=== PATIENT | male | born 1985 | race Caucasian/White ===

== ENCOUNTER 2017-02-05 14:54 | Inpatient (IN) | payer SELFPAY ==
--- NOTE | 2017-02-05 15:08 | PDOC ---
History of Present Illness - General Chief Complaint: Alcohol intoxication Stated Complaint: ALCOHOL INTOXICATION Time Seen by Provider: 02/05/17 15:01 History Source: Parent(s) Exam Limitations: Clinical Condition - History of Present Illness Initial Comments: 31 yo M history alcohol abuse presents with intoxication after 4 days of binge drinking. As per parents at bedside, he has history of heavy drinking in the past, but has never done any formal rehab/detox. He has not been eating for these past few days either. He had been telling his parents that he was feeling ill and was sleeping, however, it became apparent that he was drinking when they saw multiple wine and liquor bottles. Patient with very few verbal responses at present, does not offer history. Past History - Past Medical History Allergies/Adverse Reactions: Allergies Allergy/AdvReac Type Severity Reaction Status Date / Time No Known Allergies Allergy Unverified 02/05/17 14:57 Home Medications: Ambulatory Orders NK [No Known Home Medication] 02/05/17 Review of Systems - Review of Systems Able to Perform ROS?: No (intoxication) *Physical Exam - Physical Exam Comments: GENERAL: Awake, alert, answering some questions. Appears ill. HEAD: No signs of trauma EYES: PERRLA, EOMI, sclera anicteric, conjunctiva clear ENT: Auricles normal inspection, hearing grossly normal, nares patent, oropharynx clear without exudates. Dry mucosa. No tongue fasciculations. NECK: Normal ROM, supple, no lymphadenopathy, JVD, or masses LUNGS: Breath sounds equal, clear to auscultation bilaterally. No wheezes, and no crackles HEART: Tachycardic, normal S1 and S2, no murmurs, rubs or gallops ABDOMEN: Soft, nontender, normoactive bowel sounds. No guarding, no rebound. No masses EXTREMITIES: Normal range of motion, no edema. No clubbing or cyanosis. No cords, erythema, or tenderness. No hand tremors. NEUROLOGICAL: Cranial nerves II through XII grossly intact. Motor and sensation intact. SKIN: Warm, Dry, normal turgor, no rashes or lesions noted. Heart Score/ECG Review - ECG Impressions Comment:: EKG read 16:01- Sinus tach 111 bpm, no acute ST/T changes ED Treatment Course - LABORATORY CBC & Chemistry Diagram: 02/06/17 18:15 02/06/17 18:15 Medical Decision Making - Critical Care Time Total Critical Care Time (minutes): 45 Critical Care Statement: The care of this patient involved high complexity decision making to prevent further life threatening deterioration of the patient 's condition and/or to evaluate & treat vital organ system(s) failure or risk of failure. - Medical Decision Making 02/05/17 17:38 Lactate extremely elevated at 8, alcohol level >300. Will continue aggressive IV fluid resuscitation to clear lactate. I have added on serum acetone level. 02/05/17 18:06 Case d/w Dr. Keating, accepted to ICU for AKA. D/w Dr. Menchaca, hospitalist. Accepted for admission. Utox is still pending. 02/05/17 18:12 Results d/w patient and parents at bedside. Awaiting ICU bed so that patient may be transferred to [facility]. Will continue IV hydration. Will give zofran for nausea/vomiting. Patient is awake and alert, answering questions, still ill-appearing. 02/05/17 18:56 Utox is negative. *DC/Admit/Observation/Transfer Diagnosis at time of Disposition: Alcoholic ketoacidosis - Discharge Dispostion Condition at time of disposition: Critical Admit: Yes - Referrals - Patient Instructions - Post Discharge Activity
[2017-02-05] MEDS ORDERED: FOLIC ACID INJECTION - 1 MG, THIAMINE HCL 100 MG, MULTIVIT INJECTION ADULT 10 ML in SOD... IVPB ONE ×2 (15:09→23:45)
[2017-02-05] MEDS ORDERED: SODIUM CHLORIDE 1,000 ML IV STA (15:09)
[2017-02-05] MEDS ORDERED: FAMOTIDINE 20 MG/50 ML IVPB 20 MG/50 ML MG IVPB ONE ×2 (15:10→16:20)
[2017-02-05 16:01] LABS: BASO % 0.5 % (0-2.0); HEMATOCRIT 46.9 % (35.4-49); HEMOGLOBIN 15.7 GM/dl (11.7-16.9); LYMPH % 7.1 % (8-40); MCH 31.7 pg (25.7-33.7); MCHC 33.5 g/dl (32.0-35.9); MEAN CELL VOLUME 94.8 fl (80-96); MEAN PLT VOLUME 8.7 fl (7.5-11.1); NEUT % 88.4 % (42.8-82.8); PLATELET COUNT 212 K/MM3 (134-434); RBC 4.95 M/mm3 (4.00-5.60); RDW 12.8 % (11.9-15.9); WHITE BLOOD COUNT 15.5 K/mm3 (4.0-10.8)
[2017-02-05] MEDS ORDERED: MULTIVIT INJ. ADULT COMBO WITH VIT K 1 COMBO 10 ML VIAL IV ONE (16:18)
[2017-02-05] MEDS ORDERED: THIAMINE HCL 200 MG/2 ML VIAL ONE (16:18)
[2017-02-05] MEDS ORDERED: FOLIC ACID 5 MG/1 ML ONE (16:20)
[2017-02-05 16:35] LABS: INR 0.99 (0.82-1.09); PROTHROMBIN TIME (PATIENT) 11.1 SEC (10.2-13.0)
[2017-02-05 17:01] LABS: ACETAMINOPHEN < 2.000 ug/ml (10.0-30.0); SALICYLATE < 4.0 mg/dl (0.0-30.0); TROPONIN I (DFP) < 0.03 ng/ml (0.03-0.50)
[2017-02-05 17:04] LABS: ALCOHOL 418.1 mg/dl (5.3-49)
[2017-02-05 17:06] LABS: BLOOD UREA NITROGEN 11 mg/dl (7-18); CREATININE 0.8 mg/dl (0.6-1.3); GLUCOSE,RANDOM 174 mg/dl (74-106)
[2017-02-05 17:07] LABS: ALBUMIN 4.1 g/dl (3.5-5.0); CALCIUM 8.6 mg/dl (8.4-10.2); LIPASE 39 U/L (22-51); MAGNESIUM 2.1 mg/dL (1.8-2.4); PHOSPHOROUS 3.2 mg/dl (2.5-4.6); SGOT/AST 45 U/L (10-42); TOT PROT 7.7 g/dl (6.4-8.3)
[2017-02-05] MEDS ORDERED: SODIUM CHLORIDE 3,000 ML IV STA (17:07)
[2017-02-05 17:08] LABS: ALK PHOS 43 U/L (32-92); SGPT/ALT 38 U/L (10-40)
[2017-02-05 17:13] LABS: ANION GAP 24 (8-16); CHLORIDE 92 mmol/L (98-107); CO2 17 mmol/L (22-28); POTASSIUM 3.6 mmol/L (3.5-5.1); SODIUM 133 mmol/L (136-145)
[2017-02-05 17:30] LABS: PH,URINE 5.5 (4.5-8); URINE APPEARANCE Clear; URINE BILIRUBIN Negative (NEGATIVE); URINE GLUCOSE (UA) Negative (NEGATIVE); URINE KETONE 3+ (NEGATIVE); URINE NITRITE Negative (NEGATIVE); URINE UROBILINOGEN 0.2 (0.2-1.0)
[2017-02-05 17:33] LABS: URINE BLOOD 1+ (NEGATIVE); URINE COLOR YELLOW; URINE PROTEIN 2+ (NEGATIVE)
[2017-02-05 18:09] LABS: AMORP URATES FEW /hpf (NONE SEEN); EPI CELLS 0-3 /HPF
[2017-02-05 18:10] LABS: URINE CASTS FINELY GRANULAR 1-3 /hpf
[2017-02-05 18:11] LABS: URINE MUCUS 1+
[2017-02-05] MEDS ORDERED: ONDANSETRON 4 MG/2 ML VIAL IVPUSH ONE (18:12)
[2017-02-05] MEDS ORDERED: ONDANSETRON 4 MG/2 ML VIAL ONE (18:14)
[2017-02-05 18:30] LABS: COCAINE, UR NEGATIVE ng/ml (CUTOFF=300); OPIATES, URI NEGATIVE ng/ml (CUTOFF=300); PHENCYCLIDINE,URINE NEGATIVE ng/ml (CUTOFF=25); URINE AMPHETAMINES NEGATIVE ng/ml (CUTOFF=500); URINE BARBITURATES NEGATIVE ng/ml (CUTOFF=200); URINE BENZODIAZEPINES NEGATIVE ng/ml (CUTOFF=200)
[2017-02-05 18:34] LABS: METHADONE, UR NEGATIVE ng/ml (CUTOFF=300)
[2017-02-05] MEDS ORDERED: METOCLOPRAMIDE HCL INJECTION 10 MG/2 ML VIAL IVPUSH ONE (19:32)
--- NOTE | 2017-02-05 19:33 | HP ---
CHIEF COMPLAINT: Alcohol intoxication PCP: none Source: Patient, family (mother) HISTORY OF PRESENT ILLNESS: 31 yo man w/ pmh of alcohol abuse, ?LATOSHA/hypochondriasis who presents with AMS this AM after 4 days of surreptitious increased alcohol consumption and decreased PO intake for last 4 days. Per family, pt has been socially withdrawn in room for past 3-4 days, stating he was sick following a recent dental abscess. This AM, pt was notably altered, somnolent and appeared "acidotic" to mother, who is an [employer] and decided to bring him into ED at . Upon examining pt' s room, multiple bottles of wine and liquor were found by parents, as pt had evidently been binge drinking for the last few days in his room. Pt also with decreased PO intake and significant N/V this AM. Endorses consuming ~5 drinks this morning and feeling intoxicated. He denies any fever/chills, AGARWAL/dizziness, cough, CP, SOB, Abdominal pain, diarrhea/constipation, dysuria, hematemesis, rashes, joint pain, peripheral numbness/weakness. He does endorse L tooth abscess. Per family, pt had a similar binging episode ?6 weeks ago and attempted to remain sober since then, however apparently lost much motivation in his tx. Pt states he started drinking since age 20 and often drinks to help mitigate his severe anxiety, including stress at work, in his relationships and his health. He has never undergone a detox program before. Pt has seen a psychiatrist for phobias/LATOSHA, however is poorly compliant due to issues with taking oral medication. ER course was notable for: (1)Utox alcohol 418 (2)Lactic acid 8.2 (3)WBC 15.5 (4)4L NS at Recent Travel: None PAST MEDICAL HISTORY: ?LATOSHA/hypochondriasis Alcohol abuse PAST SURGICAL HISTORY: None Social History: Smoking: Denies Alcohol: Since age 20. 5-6 drinks per day on average currently, every day. Hard alcohol/wine/beer. 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 Mother who is W[employer]. Engaged to [employer]. States he has severe anxiety and drinks alcohol to cope with it. States that he feels very stressed at work. Family History: Father with hx/ of alcohol abuse Allergies No Known Allergies Allergy (Unverified 02/05/17 14:57) HOME MEDICATIONS: Home Medications Medication Instructions Recorded NK [No Known Home Medication] 02/05/17 REVIEW OF SYSTEMS CONSTITUTIONAL: loss of appetite, Absent: fever, chills, diaphoresis, generalized weakness, malaise, weight change HEENT: Absent: rhinorrhea, nasal congestion, throat pain, throat swelling, difficulty swallowing, mouth swelling, ear pain, eye pain, visual changes CARDIOVASCULAR: Absent: chest pain, syncope, palpitations, irregular heart rate, lightheadedness , peripheral edema RESPIRATORY: Absent: cough, shortness of breath, dyspnea with exertion, orthopnea, wheezing, stridor, hemoptysis GASTROINTESTINAL: nausea, vomiting, Absent: abdominal pain, abdominal distension, diarrhea, constipation, melena, hematochezia GENITOURINARY: Absent: dysuria, frequency, urgency, hesitancy, hematuria, flank pain, genital pain MUSCULOSKELETAL: Absent: myalgia, arthralgia, joint swelling, back pain, neck pain SKIN: Absent: rash, itching, pallor HEMATOLOGIC/IMMUNOLOGIC: Absent: easy bleeding, easy bruising, lymphadenopathy, frequent infections ENDOCRINE: Absent: unexplained weight gain, unexplained weight loss, heat intolerance, cold intolerance NEUROLOGIC: mental status changes, Absent: headache, focal weakness or paresthesias, dizziness, unsteady gait, seizure, bladder or bowel incontinence PSYCHIATRIC: anxiety, Absent: depression, suicidal or homicidal ideation, hallucinations. PHYSICAL EXAMINATION Vital Signs - 24 hr 02/05/17 02/05/17 02/05/17 14:56 16:54 18:09 Temperature 98.3 F Pulse Rate 124 H Pulse Rate [ 110 H 116 H Right Radial] Respiratory 20 20 20 Rate Blood Pressure 138/82 Blood Pressure 162/90 [Right Arm] O2 Sat by Pulse 95 96 96 Oximetry (%) GENERAL: Awake, alert, and fully oriented. Very anxious HEAD: Normal with no signs of trauma. EYES: Pupils equal, round and reactive to light, extraocular movements intact, sclera anicteric, conjunctiva clear. No lid lag. EARS, NOSE, THROAT: Ears normal, nares patent. Moist mucous membranes. Trace perimolar purulence around L upper posterior molar, with no significant drainage or erythema NECK: Normal range of motion, supple without lymphadenopathy, JVD, or masses. LUNGS: Breath sounds equal, clear to auscultation bilaterally. No wheezes, and no crackles. No accessory muscle use. HEART: Tachycardic, normal S1 and S2 without murmur, rub or gallop. ABDOMEN: Soft, nontender, not distended, normoactive bowel sounds, no guarding, no rebound, no masses. No hepatomegaly or splenomegaly. MUSCULOSKELETAL: Normal range of motion at all joints. No bony deformities or tenderness. No CVA tenderness. UPPER EXTREMITIES: 2+ pulses, warm, well-perfused. No cyanosis. No clubbing. No peripheral edema. LOWER EXTREMITIES: 2+ pulses, warm, well-perfused. No calf tenderness. No peripheral edema. NEUROLOGICAL: Cranial nerves II-XII intact. Normal speech. Gait not evaluated. PSYCHIATRIC: Cooperative. Good eye contact. Anxious and mildly agitated. SKIN: Warm, dry, normal turgor, no rashes or lesions noted, normal capillary refill. Laboratory Results - last 24 hr CBC, [facility] 02/05/17 15:45 02/05/17 15:45 02/05/17 02/05/17 02/05/17 15:45 15:45 15:45 WBC 15.5 H RBC 4.95 Hgb 15.7 Hct 46.9 MCV 94.8 MCH 31.7 MCHC 33.5 RDW 12.8 Plt Count 212 MPV 8.7 Neutrophils % 88.4 H Lymphocytes % 7.1 L Monocytes % 4.0 Eosinophils % 0.0 Basophils % 0.5 PT with INR 11.1 INR 0.99 Sodium 133 L Potassium 3.6 Chloride 92 L Carbon Dioxide 17 L Anion Gap 24 H BUN 11 Creatinine 0.8 Creat Clearance w eGFR > 60 Random Glucose 174 H Lactic Acid Calcium 8.6 Phosphorus 3.2 Magnesium 2.1 Total Bilirubin 1.0 AST 45 H ALT 38 Alkaline Phosphatase 43 Creatine Kinase Creatine Kinase Index CK-MB (CK-2) Troponin I Total Protein 7.7 Albumin 4.1 Lipase 39 Urine Color Urine Appearance Urine pH Ur Specific [place] Urine Protein Urine Glucose (UA) Urine Ketones Urine Blood Urine Nitrite Urine Bilirubin Urine Urobilinogen Ur Leukocyte Esterase Urine RBC Urine WBC Ur Epithelial Cells Amorphous Urates Urine Casts Hyaline Casts Urine Mucus Salicylates Opiates Screen Methadone Screen Acetaminophen Barbiturate Screen Phencyclidine Screen Ur Amphetamines Screen MDMA (Ecstasy) Screen Benzodiazepines Screen Cocaine Screen U Marijuana (THC) Screen Alcohol, Quantitative Acetone, Qual 12/02/05/17 02/05/17 15:45 15:45 15:45 WBC RBC Hgb Hct MCV MCH MCHC RDW Plt Count MPV Neutrophils % Lymphocytes % Monocytes % Eosinophils % Basophils % PT with INR INR Sodium Potassium Chloride Carbon Dioxide Anion Gap BUN Creatinine Creat Clearance w eGFR Random Glucose Lactic Acid 8.2 H* Calcium Phosphorus Magnesium Total Bilirubin AST ALT Alkaline Phosphatase Creatine Kinase 320 H Creatine Kinase Index 1.7 CK-MB (CK-2) 5.7 H Troponin I < 0.03 L Total Protein Albumin Lipase Urine Color Urine Appearance Urine pH Ur Specific [place] Urine Protein Urine Glucose (UA) Urine Ketones Urine Blood Urine Nitrite Urine Bilirubin Urine Urobilinogen Ur Leukocyte Esterase Urine RBC Urine WBC Ur Epithelial Cells Amorphous Urates Urine Casts Hyaline Casts Urine Mucus Salicylates < 4.0 Opiates Screen Methadone Screen Acetaminophen < 2.000 L Barbiturate Screen Phencyclidine Screen Ur Amphetamines Screen MDMA (Ecstasy) Screen Benzodiazepines Screen Cocaine Screen U Marijuana (THC) Screen Alcohol, Quantitative 418.1 H* Acetone, Qual 02/05/17 02/05/17 02/05/17 17:20 17:20 17:20 WBC RBC Hgb Hct MCV MCH MCHC RDW Plt Count MPV Neutrophils % Lymphocytes % Monocytes % Eosinophils % Basophils % PT with INR INR Sodium Potassium Chloride Carbon Dioxide Anion Gap BUN Creatinine Creat Clearance w eGFR Random Glucose Lactic Acid Calcium Phosphorus Magnesium Total Bilirubin AST ALT Alkaline Phosphatase Creatine Kinase Creatine Kinase Index CK-MB (CK-2) Troponin I Total Protein Albumin Lipase Urine Color Yellow Urine Appearance Clear Urine pH 5.5 Ur Specific [place] >= 1.030 H Urine Protein 2+ H Urine Glucose (UA) Negative Urine Ketones 3+ H Urine Blood 1+ H Urine Nitrite Negative Urine Bilirubin Negative Urine Urobilinogen 0.2 Ur Leukocyte Esterase Negative Urine RBC 5-10 Urine WBC 4-6 Ur Epithelial Cells 0-3 Amorphous Urates Few Urine Casts Finely granular 1-3 Hyaline Casts 3-5 Urine Mucus 1+ Salicylates Opiates Screen Negative Methadone Screen Negative Acetaminophen Barbiturate Screen Negative Phencyclidine Screen Negative Ur Amphetamines Screen Negative MDMA (Ecstasy) Screen Negative Benzodiazepines Screen Negative Cocaine Screen Negative U Marijuana (THC) Screen Negative Alcohol, Quantitative Acetone, Qual Trace No micro EKG - Sinus tach, rate 111, No ST/T wave changes, QTc 440 CXR: Rotated film. No acute pathology noted ASSESSMENT/PLAN: 31 yo man w/ pmh of alcohol abuse, ?LATOSHA/hypochondriasis who presents with AMS this AM after 4 days of surreptitious increased alcohol consumption and decreased PO intake for last 4 days. #Alcoholic ketoacidosis - ETOH ~420 on presentation, A-gap 24 on presentation, 14 now - NPO except for ice chips - Zofran for N/V - No BZs as pt presented altered - Thiamine, folate - CIWA protocol starting tomorrow - Detox consult - Counseling regarding ETOH cessation - Monitor for signs of withdrawal #SIRS (possible infection?) - Dental abscess improved. No other source or infectious symptoms. 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 Sae Voss PGY1 Visit type - Emergency Visit Emergency Visit: Yes ED Registration Date: 02/05/17 Care time: The patient presented to the Emergency Department on the above date and was hospitalized for further evaluation of their emergent condition. - New Patient This patient is new to me today: Yes Date on this admission: 02/06/17 - Critical Care Critical Care patient: Yes Total Critical Care Time (in minutes): 35 Critical Care Statement: The care of this patient involved high complexity decision making to prevent further life threatening deterioration of the patient 's condition and/or to evaluate & treat vital organ system(s) failure or risk of failure.
[2017-02-05] MEDS ORDERED: SODIUM CHLORIDE 1,000 ML IV ONE (19:56)
[2017-02-05 20:44] LABS: BLOOD UREA NITROGEN 7 mg/dl (7-18); CREATININE 0.7 mg/dl (0.6-1.3); GLUCOSE,RANDOM 115 mg/dl (74-106); POTASSIUM 3.7 mmol/L (3.5-5.1); SODIUM 135 mmol/L (136-145)
[2017-02-05 20:45] LABS: ANION GAP 12 (8-16); CHLORIDE 105 mmol/L (98-107); CO2 18 mmol/L (22-28)
[2017-02-05 20:48] LABS: CALCIUM 6.6 mg/dl (8.4-10.2)
--- NOTE | 2017-02-05 21:14 | PN ---
Teaching Attending Note Name of Resident: Kan Voss ATTENDING PHYSICIAN STATEMENT I saw and evaluated the patient. I reviewed the resident's note and discussed the case with the resident. I agree with the resident's findings and plan as documented. SUBJECTIVE: 31 yo M. with hx. of ETOH abuse who presents after 4 days of Binge drinking. Also, of note pt. has had poor PO intake in past several days. Pt. and family at bedside, notes increased etoh consumption and increased anxiety. No chest pain, pressure or shortness of breath. No fevers or chills. OBJECTIVE: Physical: VS: Vital Signs Period Temp Pulse Resp BP Sys/Chowdhury Pulse Ox Last 24 Hr 98.3 F 110-124 16-20 127-162/74-90 93-96 GEN:NAD, resting in bed HEENT: NCAT, PERRL, throat without exudates CARD: S tach S1, S2 RESP: CTAB ABD: BSx4, NTD to palpation EXT: - C/C/E CBCD WBC 15.5 K/mm3 (4.0-10.8) H 02/05/17 15:45 RBC 4.95 M/mm3 (4.00-5.60) 02/05/17 15:45 Hgb 15.7 GM/dl (11.7-16.9) 02/05/17 15:45 Hct 46.9 % (35.4-49) 02/05/17 15:45 MCV 94.8 fl (80-96) 02/05/17 15:45 MCHC 33.5 g/dl (32.0-35.9) 02/05/17 15:45 RDW 12.8 % (11.9-15.9) 02/05/17 15:45 Plt Count 212 K/MM3 (134-434) 02/05/17 15:45 MPV 8.7 fl (7.5-11.1) 02/05/17 15:45 CMP Sodium 135 mmol/L (136-145) L 02/05/17 20:10 Potassium 3.7 mmol/L (3.5-5.1) 02/05/17 20:10 Chloride 105 mmol/L (98-107) D 02/05/17 20:10 Carbon Dioxide 18 mmol/L (22-28) L 02/05/17 20:10 Anion Gap 12 (8-16) 02/05/17 20:10 BUN 7 mg/dl (7-18) D 02/05/17 20:10 Creatinine 0.7 mg/dl (0.6-1.3) 02/05/17 20:10 Creat Clearance w eGFR > 60 (>60) 02/05/17 15:45 Random Glucose 115 mg/dl (74-106) H D 02/05/17 20:10 Calcium 6.6 mg/dl (8.4-10.2) L* D 02/05/17 20:10 Total Bilirubin 1.0 mg/dl (0.2-1.0) 02/05/17 15:45 AST 45 U/L (10-42) H 02/05/17 15:45 ALT 38 U/L (10-40) 02/05/17 15:45 Alkaline Phosphatase 43 U/L (32-92) 02/05/17 15:45 Total Protein 7.7 g/dl (6.4-8.3) 02/05/17 15:45 Albumin 4.1 g/dl (3.5-5.0) 02/05/17 15:45 CARDIAC ENZYMES Creatine Kinase 320 IU/L (39-308) H 02/05/17 15:45 Troponin I < 0.03 ng/ml (0.03-0.50) L 02/05/17 15:45 EKG read 16:01- Sinus tach 111 bpm, no acute ST/T changes ASSESSMENT AND PLAN: 31 yo M. with hx. of ETOH abuse who presents after 4 days of Binge drinkin, being admitted for alcoholic ketoacidosis 1.) ETOH Ketoacidosis - IVF - NPO - EOTH level in 400s - CIWA- would hold off as pt. is lethargic and start tomorrow - Thiamine/Folic A - Detox Consult 2.) SIRS ?SEPSIS - [place] Cx - Repeat LA - IVF - Hold off abx as no source of infection 3.) DVT PPX - Heparin 5000 q8
[2017-02-05 21:43] VITALS: BMI 26.2
--- NOTE | 2017-02-05 21:57 | CONSULT ---
Consult - text type - Consultation Consultation Note: CCM: Pt seen and examined in ICU CC: ETOH intoxication, starvation ketosis HPI: 31 y/o man with hx of ETOH abuse and anxiety disorder presented to [facility] ED with AMS and acute alcohol intoxication. Apparently pt had not been feeling well after a recent dental abcess. He was somewhat withdrawn from family and not leaving room or eating. This morning pt was confused and acting odd, upon investigation family found numerous bottles of wine and spirits, was apparent pt had been drinking significantly for last few days. He had reported about 6 months of sobriety prior to this most recent binge. In ED pt was afebrile, normotensive, HR 90, RR 16, without distress. Labs were notable for lactate of 8 , Hco3 14, slightly elevate CK and serum osm. 3+ ketones in urine, BGL was normal but AG 24. WBC was 15 but without localizing sign/symptom of infection, tooth pain has improved since drainage. Utox was negative, salicylate and tylenol were negative. ETOH was >400. Pt was given multiple liters of IVF and transferred to [facility] for futher care. Repeat labs showed AG improved to 14, repeat lacate pending. Home Medications Medication Instructions Recorded NK [No Known Home Medication] 02/05/17 Vital Signs Temp 98.8 F 02/05/17 21:36 Pulse 110 H 02/05/17 21:36 Resp 16 02/05/17 21:36 BP 137/71 02/05/17 21:36 Pulse Ox 93 L 02/05/17 20:29 Intake & Output 02/04/17 02/05/17 02/05/17 23:59 11:59 23:59 Intake Total 4050 Output Total 350 Balance 3700 Weight 78.063 kg Intake: IV 4000 0.9 ns 1000 ml with mvi 1000 ,folic acid, and thiamine Normal Saline - 1,000 ml 1000 @ 1000 mls/hr IV ASDIR STA Rx#:[id number] Normal Saline - 3,000 ml 2000 @ 1000 mls/hr IV ASDIR STA Rx#:[id number] IVPB 50 Output: Urine 350 Void 350 Other: # Unmeasured Voids Void 1 Height 5 ft 8 in Body Mass Index (BMI) 26.2 Weight Measurement Method Built in [facility] Weight Measurement Method Est/Stated by Patient ROS: 10 pt review negative except for as per HPI CBCD WBC 15.5 K/mm3 (4.0-10.8) H 02/05/17 15:45 RBC 4.95 M/mm3 (4.00-5.60) 02/05/17 15:45 Hgb 15.7 GM/dl (11.7-16.9) 02/05/17 15:45 Hct 46.9 % (35.4-49) 02/05/17 15:45 MCV 94.8 fl (80-96) 02/05/17 15:45 MCHC 33.5 g/dl (32.0-35.9) 02/05/17 15:45 RDW 12.8 % (11.9-15.9) 02/05/17 15:45 Plt Count 212 K/MM3 (134-434) 02/05/17 15:45 MPV 8.7 fl (7.5-11.1) 02/05/17 15:45 CMP Sodium 135 mmol/L (136-145) L 02/05/17 20:10 Potassium 3.7 mmol/L (3.5-5.1) 02/05/17 20:10 Chloride 105 mmol/L (98-107) D 02/05/17 20:10 Carbon Dioxide 18 mmol/L (22-28) L 02/05/17 20:10 Anion Gap 12 (8-16) 02/05/17 20:10 BUN 7 mg/dl (7-18) D 02/05/17 20:10 Creatinine 0.7 mg/dl (0.6-1.3) 02/05/17 20:10 Creat Clearance w eGFR > 60 (>60) 02/05/17 15:45 Random Glucose 115 mg/dl (74-106) H D 02/05/17 20:10 Calcium 6.6 mg/dl (8.4-10.2) L* D 02/05/17 20:10 Total Bilirubin 1.0 mg/dl (0.2-1.0) 02/05/17 15:45 AST 45 U/L (10-42) H 02/05/17 15:45 ALT 38 U/L (10-40) 02/05/17 15:45 Alkaline Phosphatase 43 U/L (32-92) 02/05/17 15:45 Total Protein 7.7 g/dl (6.4-8.3) 02/05/17 15:45 Albumin 4.1 g/dl (3.5-5.0) 02/05/17 15:45 CARDIAC ENZYMES Creatine Kinase 320 IU/L (39-308) H 02/05/17 15:45 Troponin I < 0.03 ng/ml (0.03-0.50) L 02/05/17 15:45 Urine Test Results Urine Color Yellow 02/05/17 17:20 Urine Appearance Clear 02/05/17 17:20 Urine pH 5.5 (4.5-8) 02/05/17 17:20 Ur Specific [place] >= 1.030 (1.005-1.025) H 02/05/17 17:20 Urine Protein 2+ (NEGATIVE) H 02/05/17 17:20 Urine Glucose (UA) Negative (NEGATIVE) 02/05/17 17:20 Urine Ketones 3+ (NEGATIVE) H 02/05/17 17:20 Urine Blood 1+ (NEGATIVE) H 02/05/17 17:20 Urine Nitrite Negative (NEGATIVE) 02/05/17 17:20 Urine Bilirubin Negative (NEGATIVE) 02/05/17 17:20 Ur Leukocyte Esterase Negative (NEGATIVE) 02/05/17 17:20 Urine RBC 5-10 /hpf (0-3) 02/05/17 17:20 Urine WBC 4-6 (0-2) 02/05/17 17:20 Ur Epithelial Cells 0-3 /HPF 02/05/17 17:20 Urine Mucus 1+ 02/05/17 17:20 CXR: without infiltrate A/ 31 y/o man with ETOH abuse hx and anxiety presenting with acute ETOH intoxication and starvation/alcoholic ketosis now improved with fluid resuscitation P -overnight observation -cont fluid -trend lactate -monitor for ETOH withdrawal. -Thiamine, folate, MV -Detox consult Berry Pedro [facility] [id number]
[2017-02-05] MEDS ORDERED: CHLORHEXIDINE GLUCONATE 4% CLEANSER FOR DECOLONIZATION TP SCH (22:00)
[2017-02-05] MEDS ORDERED: LORazepam 0.5 MG TABLET PO ONE (22:42)
[2017-02-05] MEDS ORDERED: SODIUM CHLORIDE 1,000 ML IV SCH (22:45)
[2017-02-05] MEDS ORDERED: ONDANSETRON 4 MG/2 ML VIAL IVPUSH PRN (22:52)
[2017-02-05] MEDS ORDERED: LORazepam 2 MG/ML SDV VIAL ONE (22:55)
[2017-02-05] MEDS ORDERED: LORazepam 2 MG/ML SDV VIAL IVPUSH ONE (23:03)
[2017-02-06] MEDS: MUPIROCIN 2% TOPICAL OINTMENT FOR DECOLONIZATION NS SCH ×2 (00:30→10:23)
[2017-02-06] MEDS ORDERED: LORazepam 2 MG/ML SDV VIAL IVPUSH ONE (02:55)
[2017-02-06] MEDS ORDERED: LORazepam 2 MG/ML SDV VIAL ONE (03:02)
[2017-02-06 06:55] LABS: BASO % 0.2 % (0-2.0); HEMATOCRIT 34.9 % (35.4-49); HEMOGLOBIN 11.6 GM/dL (11.7-16.9); LYMPH % 16.5 % (8-40); MCH 31.3 pg (25.7-33.7); MCHC 33.1 g/dl (32.0-35.9); MEAN CELL VOLUME 94.5 fl (80-96); MEAN PLT VOLUME 8.6 fl (7.5-11.1); MONO % 7.7 % (3.8-10.2); NEUT % 75.6 % (42.8-82.8); PLATELET COUNT 133 K/MM3 (134-434); RBC 3.69 M/mm3 (4.00-5.60); RDW 13.8 % (11.9-15.9); WHITE BLOOD COUNT 14.5 K/mm3 (4.0-10.0)
[2017-02-06 07:08] LABS: PROTHROMBIN TIME (PATIENT) 11.3 SEC (9.98-11.88)
[2017-02-06 07:24] LABS: ALBUMIN 3.2 g/dl (3.4-5.0); ANION GAP 16 (8-16); BLOOD UREA NITROGEN 6 mg/dL (7-18); CALCIUM 7.6 mg/dL (8.5-10.1); CHLORIDE 103 mmol/L (98-107); CO2 20 mmol/L (21-32); CREATININE 0.7 mg/dL (0.7-1.3); GLUCOSE,RANDOM 85 mg/dL (74-106); MAGNESIUM 1.8 mg/dL (1.8-2.4); POTASSIUM 3.3 mmol/L (3.5-5.1); SGOT/AST 47 U/L (15-37); SGPT/ALT 35 U/L (12-78); SODIUM 139 mmol/L (136-145)
[2017-02-06 07:25] LABS: ALK PHOS 37 U/L (45-117)
[2017-02-06 08:01] LABS: PHOSPHOROUS 1.1 mg/dL (2.5-4.9)
--- NOTE | 2017-02-06 08:04 | PN ---
Progress Note (short form) - Note Progress Note: c/o generalized fatigue. feels unsteady but alert and aware of yesterdays events. states he never went through ETOH withdrawals from the past becuase he titrates himself off ETOH and then usually sober for several weeks and then relapses. has never done inpatient programs or AA but interested. states he has a broken tooth from several weeks ago. no pain, swelling or pus drainage. dnies CP, SOB, fever, chills, N/V/C/D, AGARWAL, auditory/visual hallucinations. suicidal/ homcidal idealations. Current Medications Generic Name Dose Route Start Last Admin Trade Name Freq PRN Reason Stop Dose Admin Chlorhexidine Gluconate 1 applic 02/05/17 22:00 02/05/17 23:00 Hibiclens For Decolonization - TP 1 applic HS RENUKA Administration Sodium Chloride 1,000 mls @ 100 mls/hr 02/05/17 22:45 02/05/17 23:02 Normal Saline - IV 100 mls/hr ASDIR RENUKA Administration Mupirocin 1 applic 02/05/17 22:00 02/06/17 00:30 Bactroban Ointment (For Decolonization) - NS 02/10/17 21:59 1 applic BID RENUKA Administration Ondansetron HCl 4 mg 02/05/17 22:52 Zofran Injection IVPUSH Q4H PRN NAUSEA AND/OR VOMITING Pantoprazole Sodium 40 mg 02/06/17 10:00 Protonix Iv IVPUSH DAILY RENUKA Last Vital Signs Temp Pulse Resp BP Pulse Ox 98.4 F 85 15 131/69 94 L 02/06/17 06:00 02/06/17 06:00 02/06/17 06:00 02/06/17 06:00 02/05/17 21:30 Intake & Output 02/03/17 02/04/17 02/05/17 02/06/17 23:59 23:59 23:59 23:59 Intake Total 4150 1425 Output Total 350 Balance 3800 1425 Weight 172 lb 1.6 oz General mildly anxious HEENT L upper maxillary with chipped tooth. no gum swelling or fluctuance along the gum line, no pus appreciated. CV S1 S2 RRR no murmur/rub/gallop Lungs CTA B/L no wheezing/rales/rhonchi ABdomen soft NT/ND Extremities no fine tremors CBCD WBC 14.5 K/mm3 (4.0-10.0) H 02/06/17 06:30 RBC 3.69 M/mm3 (4.00-5.60) L 02/06/17 06:30 Hgb 11.6 GM/dL (11.7-16.9) L 02/06/17 06:30 Hct 34.9 % (35.4-49) L 02/06/17 06:30 MCV 94.5 fl (80-96) 02/06/17 06:30 MCHC 33.1 g/dl (32.0-35.9) 02/06/17 06:30 RDW 13.8 % (11.9-15.9) 02/06/17 06:30 Plt Count 133 K/MM3 (134-434) L 02/06/17 06:30 MPV 8.6 fl (7.5-11.1) 02/06/17 06:30 CMP Sodium 139 mmol/L (136-145) 02/06/17 06:30 Potassium 3.3 mmol/L (3.5-5.1) L 02/06/17 06:30 Chloride 103 mmol/L (98-107) 02/06/17 06:30 Carbon Dioxide 20 mmol/L (21-32) L 02/06/17 06:30 Anion Gap 16 (8-16) 02/06/17 06:30 BUN 6 mg/dL (7-18) L 02/06/17 06:30 Creatinine 0.7 mg/dL (0.7-1.3) 02/06/17 06:30 Creat Clearance w eGFR > 60 (>60) 02/06/17 06:30 Random Glucose 85 mg/dL (74-106) 02/06/17 06:30 Calcium 7.6 mg/dL (8.5-10.1) L 02/06/17 06:30 Total Bilirubin 1.0 mg/dL (0.2-1.0) 02/06/17 06:30 AST 47 U/L (15-37) H 02/06/17 06:30 ALT 35 U/L (12-78) 02/06/17 06:30 Alkaline Phosphatase 37 U/L (45-117) L 02/06/17 06:30 Total Protein 6.0 g/dl (6.4-8.2) L 02/06/17 06:30 Albumin 3.2 g/dl (3.4-5.0) L 02/06/17 06:30 CARDIAC ENZYMES Creatine Kinase 320 IU/L (39-308) H 02/05/17 15:45 Troponin I < 0.03 ng/ml (0.03-0.50) L 02/05/17 15:45 A/P 31 yo M with PMH episodic ETOH abuse was brought to ER by family due to and found to be in alcoholic ketoacidosis 1. Alcoholic ketoacidosis- due to ETOH binge. CIWA 5. cont IVF, banana bag, advance diet as tolerated. counselled on mcc sequela of manager terminal drinking and increase mortality. interested in inpatient rehab program. has desires to quit drinking. consult detox to discuss options. d/c protonix 2. AGMA -due to Lactic acidosis. due to severe dehydration and starvation. AG closed. lactic acidosis trending down. 3. Severe hypophosphatemia- Kphos, neutraphos po 4. Hypokalemia- Kcl po 5. Hyponatremia- dehydration. resolved 6. SIRS- tachycardiac and leukocytosis due to starvation. no obvious source of infection. tooth does not appear infected. UA and CXR negative. Cx pending. will hold off abx at this time 7. Normocytic anemia- likely dilutional. repeat CBC this afternoon. no signs of bleeding. Txn for Hgb <7 8. Transaminitis- due to ETOH. AST>ALT. 9. DVT ppx- start hep sq 10. stable for floors. 11. spoke to patient with father present at bedside. expressed concern for continued substance abuse issues. plan discussed. answered all questions. expressed desires to go home. informed him due to electrolyte disturbances not safe to go home. anticipate d/c in AM if resolved. Visit type - Emergency Visit Emergency Visit: Yes ED Registration Date: 02/05/17 Care time: The patient presented to the Emergency Department on the above date and was hospitalized for further evaluation of their emergent condition. - New Patient This patient is new to me today: Yes Date on this admission: 02/06/17 - Critical Care Critical Care patient: Yes Total Critical Care Time (in minutes): 35 Critical Care Statement: The care of this patient involved high complexity decision making to prevent further life threatening deterioration of the patient 's condition and/or to evaluate & treat vital organ system(s) failure or risk of failure. - Discharge Referral Referred to [facility] No
[2017-02-06] MEDS ORDERED: FOLIC ACID INJECTION - 1 MG, THIAMINE HCL 100 MG, MULTIVIT INJECTION ADULT 10 ML in SOD... IVPB ONE (08:09)
[2017-02-06] MEDS ORDERED: POTASSIUM CHLORIDE ORAL LIQUID 20 MEQ/15 ML PO ONE ×2 (08:15→14:57)
[2017-02-06] MEDS ORDERED: POTASSIUM PHOSPHATE 30 MM in SODIUM CHLORIDE 250 ML IVPB ONE ×2 (09:00→14:50)
--- NOTE | 2017-02-06 09:50 | PN ---
Progress Note (short form) - Note Progress Note: Patient seen and examined in the ICU. Awake and responsive. Slightly tremulous. Denies CP or SOB. AG improving. Noted electrolyte derangement. Intake & Output 02/03/17 02/04/17 02/05/17 02/06/17 23:59 23:59 23:59 23:59 Intake Total 4150 1425 Output Total 350 Balance 3800 1425 Weight 172 lb 1.6 oz Last Vital Signs Temp Pulse Resp BP Pulse Ox 98.4 F 80 16 130/66 94 L 02/06/17 06:00 02/06/17 08:00 02/06/17 08:00 02/06/17 08:00 02/05/17 21:30 Active Medications Chlorhexidine Gluconate (Hibiclens For Decolonization -) 1 applic TP HS [facility] Last Admin: 02/05/17 23:00 Dose: 1 applic Sodium Chloride (Normal Saline -) 1,000 mls @ 100 mls/hr IV ASDIR [facility] Last Admin: 02/05/17 23:02 Dose: 100 mls/hr Folic Acid 1 mg/ Thiamine HCl 100 mg/ Multivitamins/Minerals 10 ml/ Sodium Chloride 1,000 mls @ 125 mls/hr IVPB ONCE ONE Stop: 02/06/17 16:08 Last Admin: 02/06/17 09:13 Dose: 125 mls/hr Potassium Phosphate 30 mm/ (Sodium Chloride) 260 mls @ 43.333 mls/hr IVPB ONCE ONE Stop: 02/06/17 14:59 Mupirocin (Bactroban Ointment (For Decolonization) -) 1 applic NS BID [facility] Stop: 02/10/17 21:59 Last Admin: 02/06/17 00:30 Dose: 1 applic Ondansetron HCl (Zofran Injection) 4 mg IVPUSH Q4H PRN PRN Reason: NAUSEA AND/OR VOMITING Pantoprazole Sodium (Protonix Iv) 40 mg IVPUSH DAILY [facility] GEN: NAD, awake and alert, slightly tremulous HEENT: NCAT, PERRL CARD: S1, S2 RESP: Clear ABD: BSx4, NTD to palpation EXT: - C/C/E CXR: without infiltrate IMP: Resolving ETOH/Starvation Ketoacidosis Acute ETOH intoxication Anxiety PLAN: IVF Replete lytes Monitor for withdrawal Thiamine, folate, MV Floor Detox consult Dr Keating Critical care time spent in reviewing chart, evaluating patient and formulating plan - 36 minutes.
[2017-02-06] MEDS ORDERED: PT OWN MED DRAWER 7, Y5N ONE ×2 (10:19→16:24)
[2017-02-06] MEDS: PANTOPRAZOLE SODIUM 40 MG VIAL IVPUSH SCH (10:23)
--- NOTE | 2017-02-06 13:43 | CONSULT ---
Consult Detox [facility] Reason for Current Admission/Consult: evaluate for alcohol use and need for detox Referred by:: dr. nirav Mills - History History of Present Illness: 31 yo m admitted after several days of binge drinking intoxicated, with concerns of alcoholic ketoacidosis. Patient reports sober until 20 as father is an alcoholic but has had progressive worsening alcohyollism since starting. reports binge drinking pattern , does nto drink daily no alcohol withdrawal syndrome when he does not drink, denies all other illicit drug use, seizures or DTs. takes roney lincoln for anxiety prescribed by PCP. - History Source History Provided By: Patient, Family Member, Medical Record, Caregiver Limitations to Obtaining History: No Limitations - Alcohol/Substance Use Hx Alcohol Use: Yes (EVERYTHING) Hx Substance Use: No Hx Substance Use Treatment: No - Current Drug/Alcohol Use Alcohol Route: Oral Frequency: 3-6 times per week Amount used: bigne drinking beer,spirits Age of first use: 20 Date of Last Use: 02/05/17 - Past Medical History Psych: Yes: Anxiety CIWA Score - CIWA Score Nausea/Vomitin-No Nausea/No Vomiting Muscle Tremors: None Anxiety: 2 Agitation: 1-Slight > Activity Paroxysmal Sweats: No Perspiration Orientation: 0-Oriented Tacttile Disturbances: 0-None Auditory Disturbances: 0-None Visual Disturbances: 0-None Headache: 0-None Present CIWA-Ar Total Score: 3 Assessment Plan - Diagnosis (1) Alcohol consumption binge drinking Status: Acute (2) Alcohol dependence Status: Acute (3) Hypokalemia Status: Acute (4) Anxiety Status: Chronic - Plan Plan: chart, labs, imaging reviewed, discussed care with medical providers on unit, patient examined, history taken. 31 yo m admitted with intoxication after binge drinking now ready for discharge , no alcohol withdrawal sympotms noted, REcommend: to follow up intensive outpatient proram and aa if appropriate. Supplement k, would not prescribe controlled substances , would recommend ssri for chronic anxiety disorder if this is believed to be contributing to his drinking. at high risk of medication abuse if prescription for clonpin is continued given his history. and family history. Thank you for this consult. Adonis Landry MD [phone] - Medication Detox Regimen/Protocol: Not Applicable
[2017-02-06 14:08] LABS: HEMATOCRIT 32.4 % (35.4-49); HEMOGLOBIN 10.9 GM/dL (11.7-16.9); MCH 31.5 pg (25.7-33.7); MCHC 33.6 g/dl (32.0-35.9); MEAN CELL VOLUME 93.5 fl (80-96); MEAN PLT VOLUME 7.9 fl (7.5-11.1); PLATELET COUNT 116 K/MM3 (134-434); RBC 3.46 M/mm3 (4.00-5.60); RDW 13.9 % (11.9-15.9); WHITE BLOOD COUNT 10.8 K/mm3 (4.0-10.0)
[2017-02-06 14:35] LABS: ANION GAP 12 (8-16); BLOOD UREA NITROGEN 6 mg/dL (7-18); CALCIUM 7.8 mg/dL (8.5-10.1); CHLORIDE 103 mmol/L (98-107); CO2 24 mmol/L (21-32); CREATININE 0.6 mg/dL (0.7-1.3); GLUCOSE,RANDOM 99 mg/dL (74-106); MAGNESIUM 1.9 mg/dL (1.8-2.4); POTASSIUM 3.4 mmol/L (3.5-5.1); SODIUM 139 mmol/L (136-145)
[2017-02-06 14:46] LABS: PHOSPHOROUS 1.1 mg/dL (2.5-4.9)
[2017-02-06] MEDS ORDERED: ACETAMINOPHEN 325 MG TABLET (FP) PO PRN (14:50)
[2017-02-06] MEDS ORDERED: NAPH,MB-DB/K PH,MBDB POWDER PACKET PO ONE (14:52)
[2017-02-06] MEDS ORDERED: POTASSIUM CHLORIDE TABS 20 MEQ TABLET.ER (FP) PO ONE (15:50)
--- NOTE | 2017-02-06 17:00 | EKG ---
Test Reason : Blood Pressure : / mmHG Vent. Rate : 111 BPM Atrial Rate : 111 BPM P-R Int : 140 ms QRS Dur : 078 ms QT Int : 324 ms P-R-T Axes : 053 052 034 degrees QTc Int : 440 ms SINUS TACHYCARDIA NONSPECIFIC T WAVE ABNORMALITY ABNORMAL ECG NO PREVIOUS ECGS AVAILABLE Confirmed by NICHO ANGULO MD ([id number]) on 02/06/2017 5:00:11 PM Referred By: DR LAUGHLIN Confirmed By:NICHO ANGULO MD
[2017-02-06 19:01] LABS: HEMATOCRIT 34.5 % (35.4-49); HEMOGLOBIN 11.8 GM/dL (11.7-16.9); MCHC 34.1 g/dl (32.0-35.9); MEAN PLT VOLUME 8.9 fl (7.5-11.1); PLATELET COUNT 128 K/MM3 (134-434); RBC 3.67 M/mm3 (4.00-5.60); RDW 13.9 % (11.9-15.9)
[2017-02-06 19:23] LABS: ANION GAP 8 (8-16); BLOOD UREA NITROGEN 6 mg/dL (7-18); CALCIUM 7.7 mg/dL (8.5-10.1); CHLORIDE 104 mmol/L (98-107); CO2 27 mmol/L (21-32); CREATININE 0.7 mg/dL (0.7-1.3); GLUCOSE,RANDOM 102 mg/dL (74-106); PHOSPHOROUS 1.5 mg/dL (2.5-4.9); POTASSIUM 3.6 mmol/L (3.5-5.1); SODIUM 139 mmol/L (136-145)
--- NOTE | 2017-02-07 07:21 | PN ---
Physical Exam: SUBJECTIVE: Did well overnight and was seen by detox specialist this AM. OBJECTIVE: Vital Signs Period Temp Pulse Resp BP Sys/Chowdhury Pulse Ox Last 24 Hr 98 F-99.5 F 72-80 15-18 127-135/66-77 GENERAL: The patient is awake, alert, and fully oriented, in no acute distress. HEAD: Normal with no signs of trauma. EYES: PERRL, extraocular movements intact, sclera anicteric, conjunctiva clear. No ptosis. ENT: Ears normal, nares patent, oropharynx clear without exudates, moist mucous membranes. NECK: Trachea midline, full range of motion, supple. LUNGS: Breath sounds equal, clear to auscultation bilaterally, no wheezes, no crackles, no accessory muscle use. HEART: Regular rate and rhythm, S1, S2 without murmur, rub or gallop. ABDOMEN: Soft, nontender, nondistended, normoactive bowel sounds, no guarding, no rebound, no hepatosplenomegaly, no masses. EXTREMITIES: 2+ pulses, warm, well-perfused, no edema. NEUROLOGICAL: Cranial nerves II through XII grossly intact. Normal speech, gait not observed. PSYCH: Normal mood, normal affect. SKIN: Warm, dry, normal turgor, no rashes or lesions noted Laboratory Results - last 24 hr 02/06/17 02/06/17 02/06/17 06:30 08:38 13:45 WBC 10.8 H RBC 3.46 L Hgb 10.9 L Hct 32.4 L MCV 93.5 MCH 31.5 MCHC 33.6 RDW 13.9 Plt Count 116 L MPV 7.9 Sodium 139 Potassium 3.3 L Chloride 103 Carbon Dioxide 20 L Anion Gap 16 BUN 6 L Creatinine 0.7 Creat Clearance w eGFR > 60 Random Glucose 85 Lactic Acid 2.4 H* Calcium 7.6 L Phosphorus 1.1 L* Magnesium 1.8 Total Bilirubin 1.0 AST 47 H ALT 35 Alkaline Phosphatase 37 L Total Protein 6.0 L Albumin 3.2 L 02/06/17 02/06/17 02/06/17 13:45 18:15 18:15 WBC 10.0 RBC 3.67 L Hgb 11.8 Hct 34.5 L MCV 94.0 MCH 32.0 MCHC 34.1 RDW 13.9 Plt Count 128 L MPV 8.9 D Sodium 139 139 Potassium 3.4 L 3.6 Chloride 103 104 Carbon Dioxide 24 27 Anion Gap 12 8 BUN 6 L 6 L Creatinine 0.6 L 0.7 Creat Clearance w eGFR Random Glucose 99 102 Lactic Acid Calcium 7.8 L 7.7 L Phosphorus 1.1 L* 1.5 L D Magnesium 1.9 Total Bilirubin AST ALT Alkaline Phosphatase Total Protein Albumin Active Medications Generic Name Dose Route Start Last Admin Trade Name Freq PRN Reason Stop Dose Admin Acetaminophen 650 mg 02/06/17 14:50 02/06/17 16:20 Tylenol - PO 650 mg Q4H PRN Administration FEVER OR PAIN Chlorhexidine Gluconate 1 applic 02/05/17 22:00 02/05/17 23:00 Hibiclens For Decolonization - TP 1 applic HS RENUKA Administration Mupirocin 1 applic 02/05/17 22:00 02/06/17 10:23 Bactroban Ointment (For Decolonization) - NS 02/10/17 21:59 1 applic BID RENUKA Administration Ondansetron HCl 4 mg 02/05/17 22:52 Zofran Injection IVPUSH Q4H PRN NAUSEA AND/OR VOMITING Pantoprazole Sodium 40 mg 02/06/17 10:00 02/06/17 10:23 Protonix Iv IVPUSH 40 mg DAILY RENUKA Administration ASSESSMENT/PLAN: 31 year old male with history of ETOH abuse and anxiety presenting to our ICU with acute ETOH intoxication and starvation/alcoholic ketosis improving with fluid resuscitation. Neuro: #Substance abuse: primarily an EtOH abuser - Seen by substance abuse today and thais colon - Will D/C with detox follow up instructions Endo: #Ketoacidosis: Likely due to lack of appropriate PO intake and heavy drinking behavior - Resolved on fluids overnight - Lactate normalized - Substance abuse per above - No sign of withdrawal Dispo: - safe for discharge/ transfer per primary team Visit type - Emergency Visit Emergency Visit: No - New Patient This patient is new to me today: Yes Date on this admission: 02/07/17 - Critical Care Critical Care patient: Yes Total Critical Care Time (in minutes): 35 Critical Care Statement: The care of this patient involved high complexity decision making to prevent further life threatening deterioration of the patient 's condition and/or to evaluate & treat vital organ system(s) failure or risk of failure. - Discharge Referral Referred to [facility] No
[2017-02-07 09:39] LABS: BASO % 0.4 % (0-2.0); EOS % 0.5 % (0-4.5); HEMATOCRIT 39.2 % (35.4-49); LYMPH % 23.5 % (8-40); MCH 31.2 pg (25.7-33.7); MCHC 33.3 g/dl (32.0-35.9); MEAN CELL VOLUME 93.8 fl (80-96); MEAN PLT VOLUME 8.8 fl (7.5-11.1); MONO % 6.5 % (3.8-10.2); NEUT % 69.1 % (42.8-82.8); PLATELET COUNT 128 K/MM3 (134-434); RBC 4.17 M/mm3 (4.00-5.60); RDW 13.9 % (11.9-15.9); WHITE BLOOD COUNT 10.5 K/mm3 (4.0-10.0)
[2017-02-07 10:08] LABS: ALBUMIN 3.3 g/dl (3.4-5.0); ALK PHOS 47 U/L (45-117); ANION GAP 11 (8-16); BILIRUBIN,TOTAL 1.6 mg/dL (0.2-1.0); BLOOD UREA NITROGEN 5 mg/dL (7-18); CALCIUM 8.7 mg/dL (8.5-10.1); CHLORIDE 101 mmol/L (98-107); CO2 27 mmol/L (21-32); CREATININE 0.6 mg/dL (0.7-1.3); GLUCOSE,RANDOM 89 mg/dL (74-106); POTASSIUM 3.1 mmol/L (3.5-5.1); SGOT/AST 57 U/L (15-37); SGPT/ALT 46 U/L (12-78); SODIUM 139 mmol/L (136-145); TOT PROT 6.8 g/dl (6.4-8.2)
[2017-02-07] MEDS ORDERED: POTASSIUM CHLORIDE TABS 20 MEQ TABLET.ER (FP) PO ONE ×2 (11:00→12:18)
[2017-02-07 11:04] LABS: MAGNESIUM 2.1 mg/dL (1.8-2.4)
[2017-02-07] MEDS: MUPIROCIN 2% TOPICAL OINTMENT FOR DECOLONIZATION NS SCH (11:10)
[2017-02-07] MEDS: PANTOPRAZOLE SODIUM 40 MG VIAL IVPUSH SCH (11:10)
[2017-02-07] MEDS ORDERED: NAPH,MB-DB/K PH,MBDB POWDER PACKET PO SCH (12:45)
--- NOTE | 2017-02-07 12:58 | DS ---
Physical Exam: SUBJECTIVE: Pt has no new complaints today and is eager to go home. Pt denies any symptoms today. He reports how he goes through binge drinking episodes in periods of increased anxiety most likely from holidays. Pt reports he does not drink everyday. Denies any suicidal ideations, hallucinations, tremors, agitations, fever/chills, or pain anywhere. OBJECTIVE: Vital Signs Period Temp Pulse Resp BP Sys/Chowdhury Pulse Ox Last 24 Hr 98.3 F-99.5 F 70-78 14-16 121-135/72-77 97 PHYSICAL EXAM GENERAL: NAD, awake, alert, and fully oriented HEENT: NC/AT, No JVD, EOMI, SWAPNA, sclera anicteric, no nystagmus LUNGS: CTA bilaterally, no wheezes, rhonchi, rales. No accessory muscle use. HEART: RRR, S1, S2 without murmur ABDOMEN: Soft, nontender, nondistended, normoactive bowel sounds, no guarding, no rebound, no hepatomegaly, no masses. EXTREMITIES: 2+ DP pulses, warm, well-perfused, no edema. NEUROLOGICAL: Cranial nerves II through XII grossly intact. Normal speech, normal gait PSYCH: Anxious, normal affect. SKIN: Warm, dry, no rashes or lesions noted. LABS Laboratory Results - last 24 hr 02/06/17 02/06/17 02/06/17 13:45 13:45 18:15 WBC 10.8 H 10.0 RBC 3.46 L 3.67 L Hgb 10.9 L 11.8 Hct 32.4 L 34.5 L MCV 93.5 94.0 MCH 31.5 32.0 MCHC 33.6 34.1 RDW 13.9 13.9 Plt Count 116 L 128 L MPV 7.9 8.9 D Neutrophils % Lymphocytes % Monocytes % Eosinophils % Basophils % Sodium 139 Potassium 3.4 L Chloride 103 Carbon Dioxide 24 Anion Gap 12 BUN 6 L Creatinine 0.6 L Creat Clearance w eGFR Random Glucose 99 Calcium 7.8 L Phosphorus 1.1 L* Magnesium 1.9 Total Bilirubin AST ALT Alkaline Phosphatase Total Protein Albumin 02/06/17 02/07/17 02/07/17 18:15 08:50 08:50 WBC 10.5 H RBC 4.17 Hgb 13.0 D Hct 39.2 MCV 93.8 MCH 31.2 MCHC 33.3 RDW 13.9 Plt Count 128 L MPV 8.8 Neutrophils % 69.1 Lymphocytes % 23.5 D Monocytes % 6.5 Eosinophils % 0.5 D Basophils % 0.4 Sodium 139 139 Potassium 3.6 3.1 L Chloride 104 101 Carbon Dioxide 27 27 Anion Gap 8 11 BUN 6 L 5 L Creatinine 0.7 0.6 L Creat Clearance w eGFR > 60 Random Glucose 102 89 Calcium 7.7 L 8.7 Phosphorus 1.5 L D 2.0 L D Magnesium 2.1 Total Bilirubin 1.6 H D AST 57 H D ALT 46 D Alkaline Phosphatase 47 D Total Protein 6.8 Albumin 3.3 L Microbiology 02/06/17 03:00 Urine - Urine Clean Catch Urine Culture - Final NO GROWTH OBTAINED 02/05/17 21:40 Blood - Arterial Blood Culture - Preliminary NO GROWTH OBTAINED AFTER 24 HOURS, INCUBATION TO CONTINUE FOR 4 DAYS. 02/05/17 21:35 Blood - Arterial Blood Culture - Preliminary NO GROWTH OBTAINED AFTER 24 HOURS, INCUBATION TO CONTINUE FOR 4 DAYS. HOSPITAL COURSE: Date of Admission:02/05/17 Date of Discharge: 02/07/17 Pt was admitted on 02/05/17 for altered mental status found to have an elevated alcohol level and starvation ketoacidosis. Pt was maintained on thiamine and fluid supports. During his hospital course he was found to be hypokalemic and hypophosphatemic with appropriate repletion. Pt never had any suicidal ideations or active withdrawal signs. Pt was seen in hospital with a detoxification specialist who recommended some facilities for the pt. Pt is being discharged to home with instructions to follow-up with an outpatient psychiatrist for his generalized anxiety in addition with a list of detox facilities that can help him with his alcoholism Additional imaging: CXR on admission: Negative for acute pathology EKG on admission: Sinus tachycardia of 111bpm with a QTc of 440 Minutes to complete discharge: 35 Discharge Summary Reason For Visit: ALCHOLIC KETOACIDOSIS Current Active Problems Alcoholic ketoacidosis (Acute) Anxiety (Chronic) Condition: Good - Instructions Diet, Activity, Other Instructions: RECOMMENDATIONS: You were hospitalized because your drinking caused the acids and bases to be altered in your body. Please refrain from binge drinking alcohol In periods of increased stress and anxiety please seek help before self- medicating If you start to experience tremors, increased irritability, hallucinations, or become agitated you may be going through withdrawals due to alcohol. Please call your general medical doctor or seek medical attention at the nearest ER. If you do not have a general medical doctor please call [phone] to schedule an appointment with Dr. Ferreira for general medical follow-ups --We recommend you have them check your blood counts with a "CBC" and your liver function tests in 1-2 weeks We recommend you see a detox facility provided by Dr. Landry and if you feel comfortable to go to support groups which can help. MEDICATION CHANGES: Your electrolytes were slightly off during your hospital stay --A "Neutrophos" packet will be sent to your pharmacy for you to take TWICE tomorrow; one in morning and one in night (02/09/16) --Mix with water and drink Follow-ups: You should see a psychiatrist of your choosing for your anxiety and binge drinking Referrals: Shiva Ferreira MD [Staff Physician] - (CBC and LFTs in 1-2 weeks) Disposition: HOME - Home Medications Comprehensive Discharge Medication List: Ambulatory Orders NK [No Known Home Medication] 02/05/17 This patient is new to me today: Yes Date on this admission: 02/07/17 Emergency Visit: No Critical Care patient: No - Discharge Referral Referred to [facility] No
--- NOTE | 2017-02-07 14:02 | PN ---
Teaching Attending Note Name of Resident: Jules Payan ATTENDING PHYSICIAN STATEMENT I saw and evaluated the patient. I reviewed the resident's note and discussed the case with the resident. I agree with the resident's findings and plan as documented. SUBJECTIVE: Pt seen and examined in the ICU. No specific complaints. Denies chest pain, shortness of breath. No fevers or chills. OBJECTIVE: Last Vital Signs Temp Pulse Resp BP Pulse Ox 99.3 F 76 16 125/72 97 02/07/17 06:38 02/07/17 06:00 02/07/17 06:00 02/07/17 06:00 02/06/17 21:00 Intake & Output 02/04/17 02/05/17 02/06/17 02/07/17 23:59 23:59 23:59 23:59 Intake Total 4150 3665 300 Output Total 350 Balance 3800 3665 300 Weight 78.063 kg Gen: NAD at rest Heart: RRR Lung: decreased breath sounds at the bases Abd: soft, nontender Ext: no edema CBC, BMP 02/07/17 08:50 02/07/17 08:50 Active Medications Acetaminophen (Tylenol -) 650 mg PO Q4H PRN PRN Reason: FEVER OR PAIN Last Admin: 02/06/17 16:20 Dose: 650 mg Chlorhexidine Gluconate (Hibiclens For Decolonization -) 1 applic TP HS [facility] Last Admin: 02/05/17 23:00 Dose: 1 applic Mupirocin (Bactroban Ointment (For Decolonization) -) 1 applic NS BID [facility] Stop: 02/10/17 21:59 Last Admin: 02/07/17 11:10 Dose: Not Given Ondansetron HCl (Zofran Injection) 4 mg IVPUSH Q4H PRN PRN Reason: NAUSEA AND/OR VOMITING Pantoprazole Sodium (Protonix Iv) 40 mg IVPUSH DAILY [facility] Last Admin: 02/07/17 11:10 Dose: Not Given Potassium Phos/Sodium Phos (Phos-Nak Packet -) 1 packet PO DAILY [facility] Last Admin: 02/07/17 13:00 Dose: 1 packet ASSESSMENT AND PLAN: Acute Alcohol Intoxication Lactic Acidosis Anxiety - replete lytes - PO as tolerated - d/c planning
[2017-02-07 14:44] VITALS: BP 130/70; PULSE 80; TEMP 98.9
--- NOTE | 2017-02-07 15:06 | PN ---
Teaching Attending Note Name of Resident: Luigi Jarquin ATTENDING PHYSICIAN STATEMENT Time of evaluation: 9:45 AM I saw and evaluated the patient. I reviewed the resident's note and discussed the case with the resident. I agree with the resident's findings and plan as documented. SUBJECTIVE: Patient seen and examined. no nausea, vomiting, bleeding, belly pain, or new concerns. Denies any tremors, halluciations, suicidal or homicidal ideations. OBJECTIVE: Vital Signs Period Temp Pulse Resp BP Sys/Chowdhury Pulse Ox Last 24 Hr 98.3 F-99.5 F 70-80 14-18 121-135/70-77 97-98 Intake & Output 02/04/17 02/05/17 02/06/17 02/07/17 23:59 23:59 23:59 23:59 Intake Total 4150 3665 300 Output Total 350 Balance 3800 3665 300 Weight 172 lb 1.6 oz General: sitting in bed in no acute distress CVs:S1S2 regular Chest: CTAB, no rales or wheezing abdomen: soft, NT, nD, positive bowel sounds extremities: no edema Active Medications Generic Name Dose Route Start Last Admin Trade Name Freq PRN Reason Stop Dose Admin Acetaminophen 650 mg 02/06/17 14:50 02/06/17 16:20 Tylenol - PO 650 mg Q4H PRN Administration FEVER OR PAIN Chlorhexidine Gluconate 1 applic 02/05/17 22:00 02/05/17 23:00 Hibiclens For Decolonization - TP 1 applic HS RENUKA Administration Mupirocin 1 applic 02/05/17 22:00 02/07/17 11:10 Bactroban Ointment (For Decolonization) - NS 02/10/17 21:59 Not Given BID RENUKA Ondansetron HCl 4 mg 02/05/17 22:52 Zofran Injection IVPUSH Q4H PRN NAUSEA AND/OR VOMITING Pantoprazole Sodium 40 mg 02/06/17 10:00 02/07/17 11:10 Protonix Iv IVPUSH Not Given DAILY RENUKA Potassium Phos/Sodium Phos 1 packet 02/07/17 12:45 02/07/17 13:00 Phos-Nak Packet - PO 1 packet DAILY RENUKA Administration Laboratory Results - last 24 hr 02/06/17 02/06/17 02/07/17 18:15 18:15 08:50 WBC 10.0 10.5 H RBC 3.67 L 4.17 Hgb 11.8 13.0 D Hct 34.5 L 39.2 MCV 94.0 93.8 MCH 32.0 31.2 MCHC 34.1 33.3 RDW 13.9 13.9 Plt Count 128 L 128 L MPV 8.9 D 8.8 Neutrophils % 69.1 Lymphocytes % 23.5 D Monocytes % 6.5 Eosinophils % 0.5 D Basophils % 0.4 Sodium 139 Potassium 3.6 Chloride 104 Carbon Dioxide 27 Anion Gap 8 BUN 6 L Creatinine 0.7 Creat Clearance w eGFR Random Glucose 102 Calcium 7.7 L Phosphorus 1.5 L D Magnesium Total Bilirubin AST ALT Alkaline Phosphatase Total Protein Albumin 02/07/17 08:50 WBC RBC Hgb Hct MCV MCH MCHC RDW Plt Count MPV Neutrophils % Lymphocytes % Monocytes % Eosinophils % Basophils % Sodium 139 Potassium 3.1 L Chloride 101 Carbon Dioxide 27 Anion Gap 11 BUN 5 L Creatinine 0.6 L Creat Clearance w eGFR > 60 Random Glucose 89 Calcium 8.7 Phosphorus 2.0 L D Magnesium 2.1 Total Bilirubin 1.6 H D AST 57 H D ALT 46 D Alkaline Phosphatase 47 D Total Protein 6.8 Albumin 3.3 L ASSESSMENT AND PLAN: 31 yo M with PMH episodic ETOH abuse was brought to ER by family due to and found to be in alcoholic ketoacidosis 1. Alcoholic ketoacidosis- due to ETOH binge. no s/s of withdrawal. anion gap closed. 2. AGMA -due to Lactic acidosis. due to severe dehydration and starvation. AG closed. lactic acidosis trending down. 3. Severe hypophosphatemia- improved. neutraphos for one more day. 4. Hypokalemia- improved 5. Hyponatremia- dehydration. resolved 6. SIRS- tachycardiac and leukocytosis due to starvation. no obvious source of infection. tooth does not appear infected. UA and CXR negative. Cultures neg so far. will hold off abx at this time 7. Normocytic anemia- likely dilutional. repeat CBC this afternoon. no signs of bleeding. Txn for Hgb <7 8. Transaminitis- due to ETOH. AST>ALT. overall stable, no abdominal symptoms. 9. Thrombocytopenia overall stable. Susepct alcohol related. No evidence of bleed, outpatient follow up. 9.Dr. Landry, input appreciated. D/c home with outpatient psychiatry follow up.
--- NOTE | 2017-02-08 09:35 | EKG ---
Test Reason : Blood Pressure : / mmHG Vent. Rate : 071 BPM Atrial Rate : 071 BPM P-R Int : 146 ms QRS Dur : 078 ms QT Int : 394 ms P-R-T Axes : 024 051 026 degrees QTc Int : 428 ms NORMAL SINUS RHYTHM NORMAL ECG Confirmed by MD Gregory, Lexa ([id number]) on 02/08/2017 9:34:57 AM Referred By: KARLOS CERVANTES Confirmed By:Lexa Jenkins MD
== END 2017-02-07 15:50 | disposition home or self-care (01) | DRG 775 ==
LOC: EDSEX 14:54 → FER 14:54 → JICU 20:57
PROVIDERS: ADMIT Internal Medicine; ATTEND Hospitalist
PROC: HZ2ZZZZ Detoxification Services for Substance Abuse Treatment (ICD-10-PCS; principal; 2017-02-06)
DX: F10.220 Alcohol dependence with intoxication, uncomplicated (principal); E87.2 Acidosis; Y90.8 Blood alcohol level of 240 mg/100 ml or more; F45.21 Hypochondriasis; F40.8 Other phobic anxiety disorders; K04.7 Periapical abscess without sinus; R00.0 Tachycardia, unspecified; E88.89 Other specified metabolic disorders; T73.0XXA Starvation, initial encounter; E87.6 Hypokalemia; E83.39 Other disorders of phosphorus metabolism; E87.1 Hypo-osmolality and hyponatremia; D64.9 Anemia, unspecified; R74.0 Nonspecific elevation of levels of transaminase and lactic acid dehydrogenase [LDH]; R65.10 Systemic inflammatory response syndrome (SIRS) of non-infectious origin without acute organ dysfunction; E86.0 Dehydration; D72.828 Other elevated white blood cell count; F41.8 Other specified anxiety disorders; D69.6 Thrombocytopenia, unspecified
CPT/HCPCS: 36415; 71010-TC; 80048; 80053; 80307; 81003; 81015; 82009; 82550; 82553; 83605; 83690; 83735; 83930; 84100; 84484; 85025; 85027; 85610; 87040; 87086; 93005; 93010; 99285-25